=== PATIENT | female | born 1990 | race Caucasian/White ===

== ENCOUNTER 2020-03-05 10:44 | Emergency (ER) | payer MEDICAID ==
[~2020-03-05] VITALS: Ht 165.1 cm; Wt 104.3 kg
[2020-03-05 10:59] VITALS: BP 125/80
[2020-03-05] MEDS ORDERED: KETOROLAC 30 MG/ML VIAL IM ONE (11:05)
[2020-03-05] MEDS ORDERED: MORPHINE SULFATE 4 MG/ML SYR IVP ONE (12:25)
[2020-03-05 14:38] VITALS: BP 132/81
== END 2020-03-05 14:38 | disposition home or self-care (01) ==
LOC: MED 10:44
DX: S82.891A Other fracture of right lower leg, initial encounter for closed fracture (principal); W19.XXXA Unspecified fall, initial encounter; Y93.89 Activity, other specified; Y92.89 Other specified places as the place of occurrence of the external cause; Y99.8 Other external cause status
CPT/HCPCS: 73590; 73610; 96372; 96374; 99285; J1885; J2270; 29515; 99284